=== PATIENT | female | born 1990 | race Caucasian/White ===

== ENCOUNTER 2019-06-29 12:36 | Emergency (ER) | payer OTHER ==
[~2019-06-29] VITALS: Ht 170.2 cm; Wt 68.9 kg
[2019-06-29 12:54] VITALS: Ht 170.2 cm; Wt 68.9 kg
[2019-06-29 13:31] LABS: BASOPHIL % 1.1 % (0-2); RED CELL DISTRIBUTION WIDTH 14.4 % (11.5-14.5)
[2019-06-29 13:32] LABS: PLATELET COUNT 446 x10^3mcL (130-400)
[2019-06-29 14:24] LABS: CALCIUM 8.7 mg/dL (8.5-10.1); CARBON DIOXIDE 27.4 mmol/L (21-32); CHLORIDE SERUM 103 mmol/L (98-107); CREATININE SERUM 0.7 mg/dL (0.6-1.0); GFR1 > 60 mL/min; GLUCOSE SERUM 82 mg/dL (74-106); POTASSIUM SERUM 3.9 mmol/L (3.5-5.1); SODIUM SERUM 140 mmol/L (136-145)
[2019-06-29 14:28] LABS: ALBUMIN 4.2 g/dL (3.4-5.0); ALKALINE PHOSPHATASE 61 U/L (46-116); ALT/SGPT 19 U/L (14-59); AST/SGOT 19 U/L (15-37); BILIRUBIN TOTAL 0.5 mg/dL (0.20-1.00); CHOLESTEROL 192 mg/dL (<200); MAGNESIUM 1.7 mg/dL (1.8-2.4)
[2019-06-29 14:37] LABS: HDL CHOLESTEROL 83 mg/dL (40-60)
[2019-06-29 14:40] LABS: UA SPECIFIC GRAVITY 1.015 (1.005-1.035); microscopic required? YES; urine erythrocyte NEGATIVE (NEGATIVE)
[2019-06-29 14:50] LABS: AMPHETAMINE QUAL UR NONE DETECTED (See below)
[2019-06-29 16:52] VITALS: BP 124/84
== END 2019-06-29 16:52 | disposition home or self-care (01) ==
LOC: ED 12:36
PROVIDERS: Emergency Medicine
DX: S00.83XA Contusion of other part of head, initial encounter (principal); R11.2 Nausea with vomiting, unspecified; Z88.1 Allergy status to other antibiotic agents; W05.2XXA Fall from non-moving motorized mobility scooter, initial encounter; Y93.I9 Activity, other involving external motion; Y92.488 Other paved roadways as the place of occurrence of the external cause; Y99.8 Other external cause status
CPT/HCPCS: 82962; J3490

== ENCOUNTER 2019-11-22 10:59 | Emergency (ER) | payer SELFPAY ==
[~2019-11-22] VITALS: Ht 170.2 cm; Wt 69.9 kg
[2019-11-22 11:14] VITALS: Ht 170.2 cm; Wt 69.9 kg
[2019-11-22 13:51] VITALS: BP 130/90
== END 2019-11-22 13:51 | disposition home or self-care (01) ==
LOC: ED 10:59
DX: S02.2XXA Fracture of nasal bones, initial encounter for closed fracture (principal); S01.111A Laceration without foreign body of right eyelid and periocular area, initial encounter; K13.0 Diseases of lips; I10 Essential (primary) hypertension; Z88.1 Allergy status to other antibiotic agents; W18.09XA Striking against other object with subsequent fall, initial encounter; Y93.89 Activity, other specified; Y92.89 Other specified places as the place of occurrence of the external cause; Y99.8 Other external cause status
CPT/HCPCS: J2001

== ENCOUNTER 2019-12-02 18:03 | Emergency (ER) | payer SELFPAY ==
[~2019-12-02] VITALS: Ht 170.2 cm; Wt 69.9 kg
[2019-12-02 18:13] VITALS: Ht 170.2 cm; Wt 69.9 kg
== END 2019-12-02 18:39 | disposition home or self-care (01) ==
LOC: ED 18:03
DX: S01.111D Laceration without foreign body of right eyelid and periocular area, subsequent encounter (principal); I10 Essential (primary) hypertension; Z88.1 Allergy status to other antibiotic agents; X58.XXXD Exposure to other specified factors, subsequent encounter